=== PATIENT | female | born 1940 | race Caucasian/White ===

== ENCOUNTER 2021-01-01 06:00 | Outpatient (RCR) | payer MEDICARE, OTHER, SELFPAY | END 2021-01-24 23:59 | disposition home or self-care (01) | LOC: GPT 06:00 | PROVIDERS: Family Provider Family Medicine; PCP Family Medicine; Referring Provider Neurological Surgery; Visit Provider Neurological Surgery | DX: M54.2 Cervicalgia (principal); M47.812 Spondylosis without myelopathy or radiculopathy, cervical region | CPT/HCPCS: 97032; 97110; 97112; 97140; 97162; 97530 ==

== ENCOUNTER 2021-01-25 06:00 | Outpatient (RCR) | payer MEDICARE, OTHER, SELFPAY | END 2021-02-24 23:59 | disposition home or self-care (01) | LOC: GPT 06:00 | PROVIDERS: Family Provider Family Medicine; PCP Family Medicine; Referring Provider Neurological Surgery; Visit Provider Neurological Surgery | DX: M54.2 Cervicalgia (principal); M47.812 Spondylosis without myelopathy or radiculopathy, cervical region | CPT/HCPCS: 97032; 97110; 97164; 97530 ==

== ENCOUNTER → 2021-10-15 14:08 | Outpatient (BNVA) | payer MEDICARE, OTHER, SELFPAY | PROVIDERS: Family Provider Family Medicine; PCP Family Medicine; Visit Provider Nurse Practitioner Family | DX: J18.9 Pneumonia, unspecified organism (principal); E11.8 Type 2 diabetes mellitus with unspecified complications; D63.1 Anemia in chronic kidney disease | CPT/HCPCS: 80053; 82306; 83036; 83550; 85025 ==

== ENCOUNTER → 2021-10-17 10:34 | Outpatient (BNVA) | payer OTHER, SELFPAY | PROVIDERS: Family Provider Family Medicine; PCP Family Medicine; Visit Provider Family Medicine | DX: R30.0 Dysuria (principal); D63.1 Anemia in chronic kidney disease | CPT/HCPCS: 81000; 81003; 83540 ==